=== PATIENT | male | born 1985 | race Caucasian/White ===

== ENCOUNTER 2020-04-23 10:26 | Emergency (ER) | payer OTHER, SELFPAY ==
[2020-04-23 10:41] VITALS: BP 149/93; PULSE 93; RESP 16; TEMP 37.3; O2SAT 98; BMI 33.0
--- NOTE | 2020-04-23 10:46 | HMH.EDUTC ---
[place] Disposition Clinical Impression: Exposure to COVID-19 virus Disposition: Home, Self-Care Condition on Discharge: Good Instructions: Preventing the Spread of Coronavirus Discharge Instructions Additional Instructions: Drink plenty of fluids. Take tylenol for pain or fever. Return if you begin to have difficulty breathing. Follow up with your regular doctor. GO TO THE ER FOR ANY WORSENING SYMPTOMS Prescriptions: Ondansetron [Zofran 4mg ODT] 4 mg PO Q8HP PRN #12 tab.rapdis PRN Reason: Nausea Transmission Status: Received by [id number] Referrals: Gianna Juarez MD [Primary Care Provider] - Time of Disposition: 10:48 Medical Decision Making - Medical Records Medical records reviewed: No: I reviewed the patient's medical records. - Julien Inquiry Pt receiving controlled substance: No Vital Signs: 04/23/20 10:41 04/23/20 10:50 Temperature 99.1 F 99.1 F Temperature Source Oral Pulse Rate 93 H Pulse Rate [Left] 93 H Respiratory Rate 16 16 Blood Pressure 149/93 H Blood Pressure [Right Arm] 149/93 H Blood Pressure Mean [Right Arm] 111 Blood Pressure Source [Right Arm] Automatic Cuff Blood Pressure Position [Right Arm] Sitting 02 Sat by Pulse Oximetry 98 Oxygen Delivery Method Room Air Orders (Tests/Meds): ORDERS Category Date Time Status Covid-19 Nasal PCR Sendout P&C Routine Lab 04/23/20 10:40 Received [place] HPI - General Stated complaint: covid exposure Time Seen by Provider: 04/23/20 10:46 - History of Present Illness Provider Complaint: He states that his was diagnosed with covid yesterday. He states that he has been having a mild cough and feeling bad since yesterday. - Related Data Previous Rx's Medication Instructions Recorded hydrocortisone 2.5 % topical cream 1 applic VA QD-BID PRN #30 g 07/12/18 with perineal applicator Ondansetron [Zofran 4mg ODT] 4 mg PO Q8HP PRN #12 tab.rapdis 04/23/20 Allergies Allergy/AdvReac Type Severity Reaction Status Date / Time No Known Allergies Allergy Verified 04/23/20 10:48 [facility] History - Hepatitis A Screen Attestation statement:: This patient has been screened for Hepatitis A risk factors. I have reviewed the patient's past medical history: Yes Other Surgeries: Yes: Other Amputation: No Fractures: No Comment: left eye surgery at 9 yo - Social History Smoking Status: Never smoker Alcohol Intake: current Alcohol Intake Frequency:: a few times a week Substance Use Type: denies use Occupational Status: employed Housing: house Household Members: family Family Hx:: Diabetes ROS Obtained: Yes All systems reviewed & no additional complaints - Constitutional Constitutional: Reports system reviewed and no additional complaints, except as docu - Eyes Eyes: Reports system reviewed and no additional complaints, except as docu - ENT Ears, Nose, Mouth, and Throat: Reports system reviewed and no additional complaints, except as docu - Cardiovascular Cardiovascular: Reports system reviewed and no additional complaints, except as docu - Respiratory Respiratory: Yes system reviewed and no additional complaints, except as docu - Gastrointestinal Gastrointestingal: Reports: system reviewed and no additional complaints, except as docu - Genitourinary Male Genitourinary: Reports system reviewed and no additional complaints, except as docu Physical Exam - General General appearance: alert, in no apparent distress - Head Head exam: atraumatic, normocephalic, normal inspection - Eye Eye exam: Present: normal appearance, PERRL, EOMI - ENT ENT exam: Present: normal exam, normal oropharynx, mucous membranes moist, TM's normal bilaterally, normal external ear exam - Neck Neck exam: Present: normal inspection, full ROM, trachea midline. Absent: meningismus, lymphadenopathy - Chest Chest inspection: Present: normal inspection, symmetric chest wall rise
[2020-04-23 10:50] VITALS: BP 149/93; PULSE 93; RESP 16; TEMP 37.3; O2SAT 98
[2020-04-24 09:18] LABS: Covid-19 Nasal PCR Sendout P&C POSITIVE
--- NOTE | 2020-04-24 09:59 | PC.NURSE ---
PT NOTIFIED OF POSITIVE COVID RESULT
== END 2020-04-23 11:04 | disposition home or self-care (01) ==
PROVIDERS: Emergency Provider Nurse Practitioner Family; PCP Family Medicine
DX: U07.1 COVID-19 (principal)
CPT/HCPCS: 99201; U0004

== ENCOUNTER → 2020-09-05 12:26 | Outpatient (CLI) | payer OTHER, SELFPAY ==
--- NOTE | 2020-09-05 12:35 | XR_ITS ---
PROCEDURE: XR LUMBAR SPINE MIN 4V CLINICAL INDICATION: RT SACROILIAC JOINT PAIN COMPARISON: No exams were available for comparison FINDINGS: There is normal lumbar lordosis. Vertebral body heights and alignment are maintained. Minor L5-S1 facet joint arthropathy. Bone density is normal. Visualized pedicles, transverse and the spinous processes are unremarkable. Bilateral sacroiliac joints demonstrate no evidence of sclerosis or joint space narrowing. Paravertebral soft tissues are unremarkable. IMPRESSION: No acute abnormality. Dictated by: Marry Merchant 09/05/2020 14:32 Marry Merchant in [place] 09/05/2020 14:32
== END ==
PROVIDERS: PCP Family Medicine; Visit Provider Family Medicine
DX: M53.3 Sacrococcygeal disorders, not elsewhere classified (principal)
CPT/HCPCS: 72110

== ENCOUNTER 2020-09-07 09:27 | Outpatient (RCR) | payer OTHER, SELFPAY ==
--- NOTE | 2020-09-07 10:55 | HMH.PTOPEV ---
PT Outpatient Evaluation Rehab PT Outpatient Evaluation Start: 09/07/20 09:37 Freq: Status: Active Protocol: Document 09/07/20 10:45 SEJAL (Rec: 09/07/20 10:53 SEJAL [id number]) Electronically Signed By Golden Clifford, PT 09/07/20 10:45 Outpatient Therapy Subjective History Subjective History Pt is 34 yowm who presents with c/o pain in R side low back with intermittent radiation of symptoms into R LE to thigh. He reports insidious onset of symptoms, but states I got a new vehicle and I probably lifted some things I shouldn't have and that might have started it . He reports no c/o numbness or tingling and prescibed medication has helped symptoms over the past 2-3 days. He has no significant PMH and X- rays of lumbar spine wer negative for acute pathology. Chief Complaint Pain,Stiff Symptom Type Sharp Symptoms Relieved By Rest/Positioning Symptoms Aggravated By Sitting Prior Functional Limitations None Current Functional Limitations Driving,Sleeping,Recreation Activity Symptom Description Intermittent,Activity Dependent Level of pain today (0-10) 3 Pain scale - at its worst (0-10) 7 Lumbopelvic Eval Posture Thoracic Spine Posture Standing Position Neutral Lumbar Spine Posture Standing Position Neutral Palapation tenderness right Lumbar/Sacral Palpation Findings Tenderness Lumbar/Sacral Palpation Overall Comment R SI area Range of Motion Lumbar Spine Active Flexion Range of 0-65 Motion (degrees) Lumbar Spine Active Extension Range of 0-20 Motion (degrees) Left Lumbar Spine Lateral Flexion Active 0-25 Range of Motion (degrees) Right Lumbar Spine Lateral Flexion 0-25 Active Range of Motion (degrees) Manual Muscle Test Bilateral Knee Extension Strength Grade 5 Normal Knee Flexion Strength Grade 5 Normal Hip Flexion Strength Grade 5 Normal Hip Abduction Strength Grade 5 Normal Hip Adduction Strength Grade 5 Normal Gluteus Remi Strength Grade 5 Normal Extensor Hallucis Longus Strength Grade 5 Normal Ankle Dorsiflexion Strength Grade 5 Normal Gastronemius/Soleus Strength Grade 5 Normal Special Tests Hip Scouring (Quadrant) Test Negative Left,Negative Right Hip Mau (AMANDA) Test Negative Left,Negative R
== END 2020-09-07 09:30 | disposition home or self-care (01) ==
LOC: PT 09:27
PROVIDERS: PCP Family Medicine; Visit Provider Family Medicine
DX: M53.3 Sacrococcygeal disorders, not elsewhere classified (principal)
CPT/HCPCS: 97163

== ENCOUNTER → 2021-03-12 15:11 | Outpatient (POV) | payer OTHER, SELFPAY | PROVIDERS: Visit Provider Dermatology | DX: Z00.00 Encounter for general adult medical examination without abnormal findings (principal) ==

== ENCOUNTER 2023-04-24 11:02 | Emergency (ER) | payer BC, SELFPAY ==
[2023-04-24 11:15] VITALS: BP 130/84; PULSE 72; RESP 20; TEMP 36.7; O2SAT 99; BMI 27.7
--- NOTE | 2023-04-24 11:17 | ED_ITS ---
Discharge Plan Disposition Patient Disposition: Home, Self-Care Condition: Good Prescriptions Prescriptions: New azithromycin [Zithromax] 250 mg tablet 250 mg PO UD DOSE PK Qty: 6 0RF Rx Instructions: Take two (2) tablets today, then one (1) tablet days #2 thru #5 benzonatate [benzonatate] 100 mg capsule 100 mg PO TIDP PRN (Reason: Cough) Qty: 30 0RF methylprednisolone 4 mg Tablets,Dose Pack 4 mg PO DIRECTED 6 Days Qty: 21 0RF Rx Instructions: Take 1 pack as directed for 6 days Referrals Follow up/Referrals: Gianna Juarez MD [Primary Care Provider] - See instructions Activity Restrictions/Add. Instructions Additional Instructions/Restrictions: Drink plenty of fluids. Take tylenol or ibuprofen for pain or fever. Take the medications as directed. Follow up with your regular doctor. GO TO THE ER FOR ANY WORSENING SYMPTOMS Clinical Impressions Clinical Impression: Sinusitis Instructions Patient Instructions: Sinusitis, DI for Sinusitis Discharge ED Provider: Santana Tucker [facility] General Stated complaint: cough, congestion Time Seen by Provider: 04/24/23 11:17 History of Present Illness Provider Complaint: He states that for the past 5 days he has had worsening sinus congestion. Related Data Previous Rx's Medication Instructions Recorded azithromycin 250 mg tablet 250 mg PO UD DOSE PK #6 tabs 04/24/23 (Zithromax) benzonatate 100 mg capsule 100 mg PO TIDP PRN Cough #30 caps 04/24/23 methylprednisolone 4 mg tablets in 4 mg PO DIRECTED 6 days #21 tabs 04/24/23 a dose pack Allergies Allergy/AdvReac Type Severity Reaction Status Date / Time No Known Allergies Allergy Verified 04/23/20 10:48 [facility] Disclaimer: The information contained in this section may have been updated after the patient was seen, as this information can be updated by other users. Medical History (Updated 04/24/23 @ 11:55 by Santana Tucker APRN) No significant past medical history Social History Smoking Status: Never smoker second hand exposure: No alcohol intake: current substance use type: denies use current occupational status: employed and other Travel in the last 8 weeks: None household members: family housing: house ROS Obtained: Yes All systems reviewed & no additional complaints except as documented Constitutional Constitutional: Reports poor appetite Eyes Eyes: Reports system reviewed and no additional complaints, except as documented ENT Ears, Nose, Mouth, and Throat: Reports as per HPI Cardiovascular Cardiovascular: Reports system reviewed and no additional complaints, except as documented and Denies chest pain Respiratory Respiratory: Denies shortness of breath, Denies chest congestion, Reports cough, Denies stridor and Denies wheezing Gastrointestinal Gastrointestingal: Reports system reviewed and no additional complaints, except as documented; Denies abdominal pain, diarrhea or vomiting Musculoskeletal Musculoskeletal: Reports system reviewed and no additional complaints, except as documented and Denies arthralgias Integumentary/Breasts Skin/Breast: Reports system reviewed and no additional complaints, except as documented and Denies rash Neurologic Neurologic: Denies paresthesias Allergic/Immunologic Allergic/Immunologic: Denies wheezing Physical Exam General General appearance: alert and in no apparent distress Eye Eye exam: Present normal appearance, PERRL and EOMI ENT ENT exam: Present mucous membranes moist and normal external ear exam Expanded ENT Exam External ear exam: Present normal external inspection TM/Canal exam: Bilateral TM: erythema and bulging Nose exam: Absent sinus tenderness Nasal speculum exam: Bilateral: normal Mouth exam: Present normal external inspection; Absent drooling Teeth exam: Present normal inspection Throat exam: Present tonsillar erythema and tonsillomegaly Neck Neck exam: Present normal inspection, full ROM and trachea midline; Absent tenderness, lymphadenopathy or thyromegaly Chest Chest inspection: Present normal inspection and symmetric chest wall rise; Absent tenderness or rash Respiratory Respiratory exam: Present normal lung sounds bilaterally; Absent respiratory distress, wheezes, stridor or accessory muscle use Cardiovascular Cardiovascular exam: Present regular rate, normal rhythm and normal heart sounds Abdominal Exam Abdominal exam: Present soft; Absent distention, tenderness, guarding, rebound or rigidity Extremities Exam Extremities exam: Present normal inspection, full ROM and normal capillary refill; Absent tenderness or calf tenderness Back Exam Back exam: Present normal inspection and full ROM; Absent tenderness Neurological Exam Neurological exam: Present alert and oriented X3 Psychiatric Psychiatric exam: Present normal affect and normal mood Skin Skin exam: Present warm, dry, intact and normal color Lymphatic Lymphatic Findings: no adenopathy Medical Decision Making Medical Records Medical records reviewed: No I reviewed the patient's medical records. Julien Inquiry Pt receiving controlled substance: No
[2023-04-24 11:50] VITALS: BP 130/84; PULSE 72; RESP 20; TEMP 36.7; O2SAT 99
== END 2023-04-24 12:02 | disposition home or self-care (01) ==
PROVIDERS: Emergency Provider Nurse Practitioner Family; PCP Family Medicine
DX: J01.90 Acute sinusitis, unspecified (principal); R05.9 Cough, unspecified; R09.81 Nasal congestion
CPT/HCPCS: 99204; 99212; G0463

== ENCOUNTER 2023-09-07 13:54 | Outpatient (CLI) | payer BC, SELFPAY ==
--- NOTE | 2023-09-07 14:00 | CA_ITS ---
FINAL REPORT TECHNIQUE: Ultrasound images of the deep venous system were obtained from the left groin to the calf veins. CLINICAL HISTORY: Patient states he has a knot in the posterior mid calf that has been there for 1.5 months. He denies trauma. He did take a 7 [address] ride to [place] in July 2023. He will experience occasional cramping in left calf. FINDINGS: The deep venous system is normally compressible. Normal flow is identified. There is a probable, moderate sized popliteal cyst. IMPRESSION: No evidence of left lower extremity DVT. Probable, moderate size popliteal cyst. Reviewed, Interpreted and Dictated by Serge Escobar III, MD Transcribed by Shaina Barajas Authenticated and [facility]
== END 2023-09-07 23:59 | disposition home or self-care (01) ==
LOC: RT 13:57
PROVIDERS: PCP Family Medicine; Visit Provider Family Medicine
DX: I80.02 Phlebitis and thrombophlebitis of superficial vessels of left lower extremity (principal)
CPT/HCPCS: 93971